=== PATIENT | male | born 1970 | race Caucasian/White ===

== ENCOUNTER 2022-02-19 17:00 | Emergency (ER) | payer OTHER ==
[~2022-02-19] VITALS: Ht 182.9 cm; Wt 99.3 kg
[2022-02-19] MEDS ORDERED: COZAAR25 MG (17:15)
[2022-02-19] MEDS ORDERED: CIPRO500 MG PO (18:33)
== END 2022-02-19 18:48 | disposition home or self-care (01) ==
LOC: ER 17:00
DX: S81.821A Laceration with foreign body, right lower leg, initial encounter (principal); W45.8XXA Other foreign body or object entering through skin, initial encounter; Y93.E8 Activity, other personal hygiene; Y92.9 Unspecified place or not applicable

== ENCOUNTER 2022-03-06 16:00 | Emergency (ER) | payer OTHER ==
[~2022-03-06] VITALS: Ht 185.4 cm; Wt 83.9 kg
[~2022-03-06 16:00] MED LIST: CIPRO500 MG PO; COZAAR25 MG
== END 2022-03-06 16:58 | disposition home or self-care (01) ==
LOC: ER 16:00
DX: Z51.89 Encounter for other specified aftercare (principal)